=== PATIENT | male | born 1955 | race Caucasian/White ===

== ENCOUNTER 2017-06-11 22:21 | Inpatient (IN) | payer MEDICAID ==
[~2017-06-11] VITALS: Ht 182.9 cm; Wt 81.6 kg
[2017-06-11] MEDS ORDERED: ACETAMINOPHEN 325MG TABLET PO STA (22:50)
[2017-06-11] MEDS ORDERED: ONDANSETRON HCL 4MG/2ML VIAL IV STA (22:50)
[2017-06-11] MEDS ORDERED: CEFTRIAXONE 1 G PREMIX 50 ML IV ONE (23:00)
[2017-06-11] MEDS ORDERED: SODIUM CHLORIDE 0.9% 1000ML BAG (SEPSIS BOLUS) IV ONE (23:00)
[2017-06-11 23:24] LABS: HEMATOCRIT. 44.1 % (42.0-52.0); MEAN CORPUSCULAR HEMOGLOBIN 31.5 pg (28.0-32.0); MEAN CORPUSCULAR VOLUME 92.2 fL (80.0-94.0); MEAN PLATELET VOLUME 8.3 fl (7.4-10.4); PLATELET 70 x1000/uL (130-400); RED BLOOD CELL COUNT 4.78 mill/uL (4.7-6.1)
[2017-06-11 23:39] LABS: CARBON DIOXIDE 23 mEq/L (21-32); CHLORIDE 106 mEq/L (98-107)
[2017-06-12] VITALS (7 sets, daily range): BP systolic 94–115; BP diastolic 51–73
[2017-06-12] MEDS ORDERED: SODIUM CHLORIDE 0.9% 1,000 ML IV SCH (00:28)
[2017-06-12 00:35] LABS: CLARITY URINE CLOUDY (CLEAR); COLOR URINE DARK YELLOW (YELLOW); GLUCOSE URINE TRACE (NEGATIVE); KETONES URINE TRACE (NEGATIVE); LEUKOCYTE ESTERASE URINE 2+ (NEGATIVE); NITRITE URINE POSITIVE (NEGATIVE); OCCULT BLOOD URINE 3+ (NEGATIVE); PROTEIN URINE 3+ (NEGATIVE); SPECIFIC GRAVITY URINE 1.026 (1.005-1.030)
[2017-06-12 04:43] LABS: ATYPICAL LYMPHOCYTES 1; PLATELET ESTIMATE DECREASED
[2017-06-12] MEDS ORDERED: TAMS-11 PO (05:19)
[2017-06-12] MEDS: LEVOFLOXACIN 500MG PREMIX 100 ML IV SCH (11:23)
[2017-06-12] MEDS: SODIUM CHLORIDE 0.9% 1,000 ML IV SCH ×2 (11:24→20:26)
[2017-06-12] MEDS ORDERED: SODIUM CHLORIDE 0.9% 10ML VIAL ONE (12:40)
[2017-06-12] MEDS ORDERED: IOHEXOL-300 100 ML BOTTLE ONE (12:40)
[2017-06-12] MEDS: TAMSULOSIN HCL 0.4MG SR CAPSULE PO SCH (16:01)
[2017-06-13 04:00] VITALS: BP 131/71
[2017-06-13 06:41] LABS: CARBON DIOXIDE 22 mEq/L (21-32); CHLORIDE 110 mEq/L (98-107)
[2017-06-13 06:58] LABS: HEMOGLOBIN 13.2 g/dL (14.0-18.0); MEAN CORPUSCULAR HEMOGLOBIN 31.4 pg (28.0-32.0); MEAN CORPUSCULAR VOLUME 92.9 fL (80.0-94.0); RED CELL DISTRIBUTION WIDTH 13.9 % (11.6-14.6)
[2017-06-13 07:25] LABS: PLATELET 51 x1000/uL (130-400)
[2017-06-13 08:00] VITALS: BP 138/81
[2017-06-13] MEDS: TAMSULOSIN HCL 0.4MG SR CAPSULE PO SCH (09:31)
[2017-06-13] MEDS: LEVOFLOXACIN 500MG PREMIX 100 ML IV SCH (10:55)
[2017-06-13] MEDS: SODIUM CHLORIDE 0.9% 1,000 ML IV SCH ×2 (11:10→21:15)
[2017-06-13] MEDS: ACETAMINOPHEN 325MG TABLET PO PRN (11:20)
[2017-06-13 12:00] VITALS: BP 134/72
[2017-06-13] MEDS ORDERED: HYDROCODONE/ACETAMINOPHEN 5/325MG TABLET PO PRN (12:00)
[2017-06-13 16:00] VITALS: BP 136/77
[2017-06-14 06:58] LABS: BASOPHILS % 0.5 % (0.0-2.0); EOSINOPHILS % 0.5 % (0.0-5.0); HEMATOCRIT. 42.6 % (42.0-52.0); HEMOGLOBIN. 14.8 g/dL (14.0-18.0); LYMPHOCYTES % 7.3 % (20.0-50.0); MEAN CORPUSCULAR HEMOGLOBIN 31.8 pg (28.0-32.0); MEAN CORPUSCULAR VOLUME 91.2 fL (80.0-94.0); MEAN PLATELET VOLUME 9.8 fl (7.4-10.4); MONOCYTES % 9.3 % (2.0-8.0); NEUTROPHILS % 82.4 % (40.0-76.0); PLATELET 66 x1000/uL (130-400); RED BLOOD CELL COUNT 4.67 mill/uL (4.7-6.1); RED CELL DISTRIBUTION WIDTH 14.1 % (11.6-14.6)
[2017-06-14 07:28] LABS: CARBON DIOXIDE 21 mEq/L (21-32); CHLORIDE 109 mEq/L (98-107)
[2017-06-14 08:00] VITALS: BP 147/83
[2017-06-14] MEDS: TAMSULOSIN HCL 0.4MG SR CAPSULE PO SCH (09:44)
[2017-06-14] MEDS: LEVOFLOXACIN 500MG PREMIX 100 ML IV SCH (11:20)
[2017-06-14 12:00] VITALS: BP 133/65
[2017-06-14] MEDS: SODIUM CHLORIDE 0.9% 1,000 ML IV SCH (13:50)
[2017-06-14] MEDS: CEFEPIME 1,000 MG in DEXTROSE 5% WATER 50 ML IV SCH ×2 (13:58→21:51)
[2017-06-14 16:00] VITALS: BP 151/74
[2017-06-14] MEDS: ACETAMINOPHEN 325MG TABLET PO PRN (18:23)
[2017-06-14 20:00] VITALS: BP 139/78
[2017-06-15] VITALS: BP 152/83
[2017-06-15] MEDS: SODIUM CHLORIDE 0.9% 1,000 ML IV SCH ×2 (03:10→21:55)
[2017-06-15 04:00] VITALS: BP 159/85
[2017-06-15] MEDS: CEFEPIME 1,000 MG in DEXTROSE 5% WATER 50 ML IV SCH ×3 (06:17→21:55)
[2017-06-15 08:00] VITALS: BP 139/78
[2017-06-15] MEDS: TAMSULOSIN HCL 0.4MG SR CAPSULE PO SCH (08:27)
[2017-06-15 12:00] VITALS: BP 149/82
[2017-06-15 16:00] VITALS: BP 128/75
[2017-06-15 20:00] VITALS: BP 140/80
[2017-06-16] VITALS (7 sets, daily range): BP systolic 126–165; BP diastolic 68–91
[2017-06-16] MEDS: CEFEPIME 1,000 MG in DEXTROSE 5% WATER 50 ML IV SCH ×3 (05:55→22:32)
[2017-06-16 06:31] LABS: HEMATOCRIT. 41.6 % (42.0-52.0); HEMOGLOBIN. 14.2 g/dL (14.0-18.0); MEAN CORPUSCULAR HEMOGLOBIN 31.4 pg (28.0-32.0); MEAN CORPUSCULAR VOLUME 91.8 fL (80.0-94.0); PLATELET 104 x1000/uL (130-400); RED BLOOD CELL COUNT 4.53 mill/uL (4.7-6.1); RED CELL DISTRIBUTION WIDTH 14.2 % (11.6-14.6)
[2017-06-16 08:06] LABS: CARBON DIOXIDE 23 mEq/L (21-32); CHLORIDE 109 mEq/L (98-107)
[2017-06-16] MEDS: TAMSULOSIN HCL 0.4MG SR CAPSULE PO SCH (09:54)
[2017-06-16] MEDS ORDERED: POTASSIUM CHLORIDE 20MEQ TABLET SR PO SCH (10:45)
[2017-06-16] MEDS ORDERED: POTASSIUM CHLORIDE 20MEQ TABLET SR PO NR (11:00)
[2017-06-16 21:16] LABS: ATYPICAL LYMPHOCYTES 2; PLATELET ESTIMATE DECREASED
[2017-06-17] VITALS: BP 128/69
[2017-06-17 04:00] VITALS: BP 140/76
[2017-06-17] MEDS: CEFEPIME 1,000 MG in DEXTROSE 5% WATER 50 ML IV SCH ×2 (06:15→13:52)
[2017-06-17 08:00] VITALS: BP 141/65
[2017-06-17] MEDS: TAMSULOSIN HCL 0.4MG SR CAPSULE PO SCH (08:43)
[2017-06-17 12:00] VITALS: BP 124/70
[2017-06-17 14:03] VITALS: BP 105/71
[2017-06-17 16:00] VITALS: BP 126/81
== END 2017-06-17 16:25 | disposition home or self-care (01) | DRG 720 ==
LOC: ER 22:39 → 7WST 06-12 00:31 → EDBEDREQ 06-12 00:38 → ENRESERV 06-12 02:22 → 7WST 06-12 08:39
PROVIDERS: ADMIT Hospitalist; ATTEND Hospitalist
PROC: 02HV33Z Insertion of Infusion Device into Superior Vena Cava, Percutaneous Approach (ICD-10-PCS; principal; 2017-06-16)
PROC: B5181ZA Fluoroscopy of Superior Vena Cava using Low Osmolar Contrast, Guidance (ICD-10-PCS; 2017-06-16)
PROC: B548ZZA Ultrasonography of Superior Vena Cava, Guidance (ICD-10-PCS; 2017-06-16)
DX: A41.51 Sepsis due to Escherichia coli [E. coli] (principal); N17.9 Acute kidney failure, unspecified; D69.6 Thrombocytopenia, unspecified; E44.1 Mild protein-calorie malnutrition; C61 Malignant neoplasm of prostate; N39.0 Urinary tract infection, site not specified; R31.9 Hematuria, unspecified; Z68.24 Body mass index [BMI] 24.0-24.9, adult
CPT/HCPCS: 36415; 36569; 71010; 74177; 76937; 77001; 80048; 80053; 81001; 81003; 83605; 83735; 85025; 85027; 87040; 87077; 87086; 87186; 93005; 96365; 96375; 99291; A4216; C1725; J0692; J0696; J1956; J2405; J7030; J7040; J7050; J7060; Q9967; A4315